=== PATIENT | male | born 1950 | race Caucasian/White ===

== ENCOUNTER 2018-10-10 11:36 | Emergency (ER) | payer MEDICARE, OTHER, SELFPAY ==
[2018-10-10 11:37] VITALS: BP 149/88; PULSE 58; RESP 16; TEMP 36.4; O2SAT 99; BMI 28.8
--- NOTE | 2018-10-10 12:15 | RAD_ITS ---
STUDY: X-RAY - LEFT HAND, ATTENTION THIRD FINGER REASON FOR EXAM: Male, 68 years old. Puncture wound along the distal phalanx of the third digit. TECHNIQUE: 3 view(s) of the finger were obtained. COMPARISON: None. FINDINGS: Normal metacarpal head. Normal metacarpophalangeal joint. Normal proximal phalanx. Normal middle phalanx. Findings suggestive of an avulsion fracture of the distal phalanx of the third digit. Normal proximal interphalangeal joint. Normal distal interphalangeal joint. No radiopaque foreign body is seen. RAD/Finger(s) Min 2 Views IMPRESSION: Avulsion fracture of the tuft of the distal phalanx of the third digit. Electronically Signed: Donald Jacobson, at 12:58 EDT , Service support ,
--- NOTE | 2018-10-10 13:10 | ED.DCSUM_ITS ---
- ER Visit Summary Date of Service: 10/10/18 Chief Complaint: Injury to left middle finger. History of Present Illness: The patient is a 68 M who does not know the name of his primary care physician. He reports that he was working in his wood shop at home and accidentally drilled through the distal phalanx of his left middle finger. He denies any pain or tingling. He is right-hand dominant. His tetanus is up-to-date. Physical Examination: Vitals: Stable. Afebrile. General: Well-nourished and well-developed. Head: Normocephalic atraumatic. Neck: Supple, no lymphadenopathy. No JVD. Nontender. Cardiovascular: Regular rate and rhythm. No murmurs. Respiratory: No respiratory distress. Clear to auscultation bilaterally. Abdominal: Soft, nontender, nondistended, normal bowel sounds. No guarding, rebound, or peritoneal signs. Back: Nontender. Extremities: Left middle finger: On the lateral side of the DIP joint there is an entry wound that is approximately 1 cm in length. This has tissue loss present. There is no active bleeding. He is neurovascular intact distally wrist. Normal sensation light touch. Less than 2-second cap refill. He is able to flex his DIP joint against resistance Skin: Normal color, no rash. Neurologic: Alert and oriented ?3. Cranial nerves II through XII are intact. Normal strength and sensation. Psych: Normal affect. Test Results: X-ray does show a tuft fracture. However, this is not the area where the drill went. This is old. He has no acute bony involvement. Emergency Department Course and Treatment: Patient had the wound cleansed and a dressing was placed. He was treated with Keflex p.o. I did discuss with him that I think the best course of action is to let this heal by secondary intention. Treatment Plan: The patient was discussed with Dr. Brown. He will be discharged on Keflex and instructed to follow-up in the office in 3-5 days for wound check. Return to the emergency department for any worsening symptoms. Disposition: To home in improved and stable condition. Impression: 1. Laceration left middle finger, 1 cm, not repaired. This note was generated with [employer] dictation software. It may contain incorrect words, spelling, and punctuation that were not noted in review of the chart prior to signing ED Disposition - Plan for ED Patient: Disposition: Home or Assisted Living Instructions: ED Wound Care Prescriptions: Cephalexin [Keflex] 500 mg PO Q6 #28 capsule Referrals: Rebel Rosa DO [STAFF PHYSICIAN] - 3-5 Days Additional Instructions: Do epson salt soaks 3 times a day.
[2018-10-10] MEDS: Cephalexin 250 MG Capsule 500 MG PO (13:23)
== END 2018-10-10 13:32 | disposition home or self-care (01) ==
LOC: ED 12:24
PROVIDERS: Emergency Provider Emergency Medicine
DX: S61.213A Laceration without foreign body of left middle finger without damage to nail, initial encounter (principal); W29.8XXA Contact with other powered hand tools and household machinery, initial encounter; Y93.89 Activity, other specified; Y92.008 Other place in unspecified non-institutional (private) residence as the place of occurrence of the external cause
CPT/HCPCS: 73140; 99283